=== PATIENT | female | born 1985 | race Caucasian/White ===

== ENCOUNTER 2016-11-12 22:17 | Emergency (ER) | payer OTHER ==
[2016-11-12 23:05] LABS: BASOPHILS 0.5 % (0.0-2.0); EOSINOPHILS 0.7 % (0-7); HEMATOCRIT 33.6 % (36.0-48.0); HEMOGLOBIN 9.7 g/dL (12-16); IMMATURE GRANULOCYTES 0.2 % (0-5); LYMPHOCYTES 8.9 % (15-50); MCHC 28.9 g/dL (31.0-37.0); MONOCYTES 5.3 % (2-11); NEUTROPHILS 84.4 % (40-80); RBC 5.33 10x6/uL (4.00-5.40); RDW 18.6 % (11.5-14.5); WBC 8.6 10x3/uL (4.8-10.8)
[2016-11-12 23:07] LABS: MCH 18.2 pg (26.0-34.0); PLATELET COUNT 293 10x3/uL (130-400)
[2016-11-12 23:07] LABS: APPEARANCE HAZY (CLEAR); COLOR YELLOW (YELLOW); LEUKOCYTE ESTERASE TRACE (NEGATIVE); NITRITE POSITIVE (NEGATIVE); SPECIFIC GRAVITY 1.015 (1.005-1.020)
[2016-11-12 23:08] LABS: BILIRUBIN NEGATIVE (NEGATIVE); GLUCOSE NEGATIVE (NEGATIVE); KETONE NEGATIVE (NEGATIVE); PROTEIN TRACE mg/dL (NEGATIVE); UROBILINOGEN NORMAL (NORMAL)
[2016-11-12 23:16] LABS: BACTERIA MANY /hpf (NONE SEEN); EPITHELIAL CELLS 0-5 /hpf (0-5); MUCUS <1+ /lpf (NONE SEEN); RED CELLS - URINE 0-5 /hpf (0-5); WHITE CELLS - URINE 25-50 /hpf (0-5)
[2016-11-12 23:17] LABS: GRANULAR CAST OCC /lpf (NONE SEEN); HYALINE CAST 0-5 /lpf (NONE SEEN)
== END 2016-11-12 23:28 | disposition home or self-care (01) ==
LOC: D.ER 22:17
PROVIDERS: Emergency Medicine
DX: K52.9 Noninfective gastroenteritis and colitis, unspecified (principal); R11.10 Vomiting, unspecified; D64.9 Anemia, unspecified; F17.200 Nicotine dependence, unspecified, uncomplicated; J45.909 Unspecified asthma, uncomplicated

== ENCOUNTER 2017-09-09 16:01 | Emergency (ER) | payer SELFPAY | END 2017-09-09 18:45 | disposition home or self-care (01) | LOC: D.ER 16:01 | DX: S39.012A Strain of muscle, fascia and tendon of lower back, initial encounter (principal); W19.XXXA Unspecified fall, initial encounter; Y93.89 Activity, other specified; Y92.029 Unspecified place in mobile home as the place of occurrence of the external cause; M62.838 Other muscle spasm; M25.552 Pain in left hip ==